=== PATIENT | female | born 1985 | race Two or more races ===

== ENCOUNTER 2016-09-14 16:18 | Emergency (ER) | payer OTHER ==
[~2016-09-14] VITALS: Ht 162.6 cm; Wt 57.6 kg
[2016-09-14] MEDS ORDERED: NKM (16:33)
--- NOTE | 2016-09-14 16:56 | Emergency Room Report ---
History of Present Illness General Chief Complaint: Laceration Source: Patient Present Illness HPI 31-year-old female complains of laceration to head 1 hour ago. States that she was getting out of the shower when she slipped and cut her head on a metal rail. Denies any KO, ALOC, headache, vision complaints, or any other medical complaint. States the bleeding had stopped with direct pressure and that her tetanus shot is up-to-date. Allergies: Coded Allergies: Dust (Verified Allergy, Unknown, 09/14/16) Uncoded Allergies: CATS (Allergy, Unknown, 09/14/16) Patient History Past Medical History: see triage record Past Surgical History: none Pertinent Family History: none Last Menstrual Period: 2 weeks ago Now: No Immunizations: UTD Reviewed Nursing Documentation: PMH: Agreed, PSxH: Agreed Nursing Documentation-PMH Past Medical History: No Stated History Review of Systems All Other Systems: negative except mentioned in HPI Physical Exam Vital Signs Date Time Temp Pulse Resp B/P Pulse Ox O2 Delivery O2 Flow Rate FiO2 09/14/16 16:28 98.1 63 16 107/70 98 Room Air Sp02 EP Interpretation: reviewed Head: normocephalic, atraumatic Eyes: bilateral eye PERRL, bilateral eye normal inspection ENT: hearing grossly normal, normal pharynx, no angioedema, normal voice Neck: full range of motion, supple/symm/no masses Respiratory: chest non-tender, lungs clear, normal breath sounds, speaking full sentences Cardiovascular #1: regular rate, rhythm, no edema Neurologic: alert, oriented x3, responsive, motor strength/tone normal, sensory intact, speech normal Psychiatric: judgement/insight normal, memory normal, mood/affect normal, no suicidal/homicidal ideation Skin: normal color, no rash, warm/dry, well hydrated, laceration Procedures Laceration/Wound Repair Laceration/Wound Repair : Consent: Verbal Wound Location: head Wound's Depth, Shape: superficial, linear Wound Explored: clean Irrigated w/ Saline (ccs): 100 Betadine Prep?: Yes Patient Tolerated: Well Complications: None Progress Wound closure was achieved by dermabond Medical Decision Making PA Attestation Dr. Radford is my supervising physician with whom patient management has been discussed with. Diagnostic Impression: Primary Impression: Laceration ER Course Pt. presents to the ED c/o laceration Ddx considered but are not limited to abrasion, contusion, laceration, concussion, interracial hemorrhage Vital signs: are WNL, pt. is afebrile H&PE are most consistent with head laceration ORDERS: none required at this time, the diagnosis is clinical ED INTERVENTIONS: Dermabond DISCHARGE: At this time pt. is stable for d/c to home. Will provide printed patient care instructions, and any necessary prescriptions. Care plan and follow up instructions have been discussed with the patient prior to discharge. Last Vital Signs Date Time Temp Pulse Resp B/P Pulse Ox O2 Delivery O2 Flow Rate FiO2 09/14/16 16:28 98.1 63 16 107/70 98 Room Air Disposition: HOME, SELF-CARE Referrals: NOT CHOSEN IPA/MD,REFERRING (PCP) Patient Instructions: Laceration Care, Adult, Sterile Tape Wound Care CARMEN PHIPPS Sep 14, 2016 16:56
[2016-09-14 17:00] VITALS: BP 107/70
== END 2016-09-14 17:02 | disposition home or self-care (01) ==
LOC: EMR 16:42
DX: S01.81XA Laceration without foreign body of other part of head, initial encounter (principal); W01.198A Fall on same level from slipping, tripping and stumbling with subsequent striking against other object, initial encounter; Y93.9 Activity, unspecified; Y92.9 Unspecified place or not applicable; Z91.048 Other nonmedicinal substance allergy status
CPT/HCPCS: 12011; 99284; G0168